=== PATIENT | female | born 1955 | race Caucasian/White ===

== ENCOUNTER 2016-09-24 01:44 | Emergency (ER) | payer MEDICARE, OTHER ==
[2016-09-24 02:13] VITALS: TEMP 98.1; BMI 66.3
--- NOTE | 2016-09-24 03:04 | PDOC ---
History of Present Illness - General Chief Complaint: Vaginal Bleeding Stated Complaint: RECTAL BLEEDING,SOB Time Seen by Provider: 09/24/16 02:04 History Source: Patient Past History - Past Medical History Allergies/Adverse Reactions: Allergies Allergy/AdvReac Type Severity Reaction Status Date / Time No Known Drug Allergies Allergy Verified 09/24/16 02:07 Home Medications: Ambulatory Orders Bupropion HCl [Wellbutrin Xl -] 150 mg PO DAILY #0 tab 05/11/13 Calamine 8% Topical Lotion - 1 applic TP DAILY #0 bottle 05/11/13 Carvedilol [Coreg -] 6.25 mg PO BID #0 tablet 05/11/13 Furosemide [Lasix -] 40 mg PO DAILY #0 tablet 05/11/13 Hydrochlorothiazide [Hctz -] 25 mg PO DAILY #0 tablet 05/11/13 Losartan Potassium [Cozaar -] 100 mg PO DAILY #0 tablet 05/11/13 Silver Sulfadiazine 1% Top Cr [Silvadene -] 1 applic TP ASDIR #0 jar 05/11/13 Spironolactone [Aldactone -] 25 mg PO DAILY #0 tablet 05/11/13 Oxycodone HCl [Roxicodone -] 5 mg PO Q4H PRN #30 tablet 07/16/14 Rivaroxaban [Xarelto -] 20 mg PO DAILY #60 tablet 07/16/14 Anemia: No Asthma: No Cancer: No Cardiac Disorders: Yes (chest pain, POSSIBLE PE) CVA: No COPD: No CHF: No Dementia: No Diabetes: No GI Disorders: No Disorders: No HTN: Yes Hypercholesterolemia: No Liver Disease: No Suicide Attempt (Hx): No Seizures: No Thyroid Disease: No - Surgical History Abdominal Surgery: No Appendectomy: No Cardiac Surgery: No Cholecystectomy: No Lung Surgery: No Neurologic Surgery: No Orthopedic Surgery: No - Psycho/Social/Smoking Cessation Hx Anxiety: No Suicidal Ideation: No Smoking Status: No Smoking History: Never smoked Have you smoked in the past 12 months: No Number of Cigarettes Smoked Daily: 0 Hx Alcohol Use: No Drug/Substance Use Hx: No Substance Use Type: None Hx Substance Use Treatment: No *Physical Exam - Vital Signs Last Vital Signs Temp Pulse Resp BP Pulse Ox 98.1 F 119 H 20 141/72 96 09/24/16 01:45 09/24/16 01:45 09/24/16 01:45 09/24/16 01:45 09/24/16 01:45 ED Treatment Course - LABORATORY CBC & Chemistry Diagram: 09/24/16 03:00 09/24/16 03:00 *DC/Admit/Observation/Transfer Diagnosis at time of Disposition: Postmenopausal bleeding - Discharge Dispostion Disposition: HOME Condition at time of disposition: Stable - Referrals Referrals: Harvey Howard MD [Primary Care Provider] - Sandra Rehman MD [Staff Physician] - - Patient Instructions Printed Discharge Instructions: Postmenopausal Bleeding Additional Instructions: Please follow-up with Dr. Rehman of lab head for biopsy of your uterus to rule out malignancy at this time. If you are still interested in being placed in a long-term care facility, follow -up with your PMD who can assist in arranging placement
[2016-09-24 03:24] LABS: BASOPHIL 0.3 % (0-2.0); EOSINOPHIL 0.2 % (0-4.5); MCH 29.8 pg (25.7-33.7); MCHC 33.3 g/dl (32.0-36.0); MEAN CELL VOLUME 89.5 fl (80-96); MEAN PLT VOLUME 6.6 fl (7.5-11.1); NEUTROPHILS 82.4 % (42.8-82.8); PLATELET COUNT 143 K/MM3 (134-434); RDW 15.8 % (11.6-15.6); WHITE BLOOD COUNT 6.9 K/mm3 (4.0-10.0)
[2016-09-24 03:47] LABS: TROPONIN I < 0.02 ng/ml (0.00-0.05)
[2016-09-24 03:50] LABS: ALBUMIN 3.7 g/dl (3.4-5.0); ANION GAP 13 (8-16); BILIRUBIN,TOTAL 0.4 mg/dL (0.2-1.0); CALCIUM 8.6 mg/dL (8.5-10.1); CO2 24 mmol/L (21-32); CREATININE 0.7 mg/dL (0.55-1.02); GLUCOSE,RANDOM 138 mg/dL (74-106); SGOT/AST 13 U/L (15-37); SGPT/ALT 25 U/L (12-78); TOT PROT 7.3 g/dl (6.4-8.2)
[2016-09-24 03:51] LABS: ALK PHOS 118 U/L (45-117)
[2016-09-24 04:04] LABS: URINE APPEARANCE CLEAR; URINE BILIRUBIN NEGATIVE (NEGATIVE); URINE COLOR YELLOW; URINE GLUCOSE (UA) NEGATIVE (NEGATIVE); URINE KETONE NEGATIVE (NEGATIVE); URINE LEUK ESTERASE NEGATIVE (NEGATIVE); URINE NITRITE NEGATIVE (NEGATIVE); URINE UROBILINOGEN NEGATIVE E.U./dl (0.2-1.0)
[2016-09-24 04:05] LABS: URINE BLOOD 1+ (NEGATIVE); URINE PROTEIN 1+ (NEGATIVE)
[2016-09-24 04:11] LABS: GRANULAR CASTS 12 /lpf; URINE BACTERIA RARE /hpf (NONE SEEN); URINE HYALINE CAST 5 /lpf; URINE MUCUS MANY; URINE RBC 6 /hpf (0-3); URINE WBC 2 /hpf (3-5)
--- NOTE | 2016-09-24 04:36 | PDOC ---
*Physical Exam - Vital Signs Last Vital Signs Temp Pulse Resp BP Pulse Ox 98.1 F 119 H 20 141/72 96 09/24/16 01:45 09/24/16 01:45 09/24/16 01:45 09/24/16 01:45 09/24/16 01:45 ED Treatment Course - LABORATORY CBC & Chemistry Diagram: 09/24/16 03:00 09/24/16 03:00 - ADDITIONAL ORDERS Additional order review: Laboratory Results 09/24/16 09/24/16 09/24/16 03:50 03:00 03:00 Sodium 139 Potassium 3.7 Chloride 102 Carbon Dioxide 24 D Anion Gap 13 BUN 13 D Creatinine 0.7 D Creat Clearance w eGFR > 60 Random Glucose 138 H D Calcium 8.6 Total Bilirubin 0.4 D AST 13 L ALT 25 Alkaline Phosphatase 118 H D Creatine Kinase 30 Troponin I < 0.02 Total Protein 7.3 Albumin 3.7 Urine Color Yellow Urine Appearance Clear Urine pH 5.0 Ur Specific [place] 1.024 Urine Protein 1+ H Urine Glucose (UA) Negative Urine Ketones Negative Urine Blood 1+ H Urine Nitrite Negative Urine Bilirubin Negative Urine Urobilinogen Negative Ur Leukocyte Esterase Negative Urine RBC 6 Urine WBC 2 Ur Epithelial Cells Rare Urine Bacteria Rare Hyaline Casts 5 Granular Casts 12 Urine Mucus Many 09/24/16 03:00 RBC 3.82 MCV 89.5 MCHC 33.3 RDW 15.8 H MPV 6.6 L Neutrophils % 82.4 D Lymphocytes % 12.8 D Monocytes % 4.3 Eosinophils % 0.2 D Basophils % 0.3 Medical Decision Making - Medical Decision Making 09/24/16 04:36 agree with care from [facility] *DC/Admit/Observation/Transfer Diagnosis at time of Disposition: Postmenopausal bleeding - Discharge Dispostion Disposition: HOME Condition at time of disposition: Stable Admit: No - Referrals Referrals: Harvey Howard MD [Primary Care Provider] - Sandra Rehman MD [Staff Physician] - - Patient Instructions Printed Discharge Instructions: Postmenopausal Bleeding Additional Instructions: Please follow-up with Dr. Rehman of semiconductor development technician for biopsy of your uterus to rule out malignancy at this time. If you are still interested in being placed in a long-term care facility, follow -up with your PMD who can assist in arranging placement
--- NOTE | 2016-09-24 09:43 | PDOC ---
*Physical Exam - Vital Signs Last Vital Signs Temp Pulse Resp BP Pulse Ox 98.1 F 119 H 20 141/72 96 09/24/16 01:45 09/24/16 01:45 09/24/16 01:45 09/24/16 01:45 09/24/16 01:45 ED Treatment Course - LABORATORY CBC & Chemistry Diagram: 09/24/16 03:00 09/24/16 03:00 - ADDITIONAL ORDERS Additional order review: Laboratory Results 09/24/16 09/24/16 09/24/16 03:50 03:00 03:00 Sodium 139 Potassium 3.7 Chloride 102 Carbon Dioxide 24 D Anion Gap 13 BUN 13 D Creatinine 0.7 D Creat Clearance w eGFR > 60 Random Glucose 138 H D Calcium 8.6 Total Bilirubin 0.4 D AST 13 L ALT 25 Alkaline Phosphatase 118 H D Creatine Kinase 30 Troponin I < 0.02 Total Protein 7.3 Albumin 3.7 Urine Color Yellow Urine Appearance Clear Urine pH 5.0 Ur Specific [place] 1.024 Urine Protein 1+ H Urine Glucose (UA) Negative Urine Ketones Negative Urine Blood 1+ H Urine Nitrite Negative Urine Bilirubin Negative Urine Urobilinogen Negative Ur Leukocyte Esterase Negative Urine RBC 6 Urine WBC 2 Ur Epithelial Cells Rare Urine Bacteria Rare Hyaline Casts 5 Granular Casts 12 Urine Mucus Many 09/24/16 03:00 RBC 3.82 MCV 89.5 MCHC 33.3 RDW 15.8 H MPV 6.6 L Neutrophils % 82.4 D Lymphocytes % 12.8 D Monocytes % 4.3 Eosinophils % 0.2 D Basophils % 0.3 Medical Decision Making - Medical Decision Making 09/24/16 09:40 As per radiology, was unable to do transvaginal ultrasound secondary to patient' s weight However transabdominal ultrasound was performed and shows mildly thickened endometrium, otherwise no acute pathology. Given postmenopausal bleeding, patient aware that she will need to follow-up with [facility] to rule out endometrial malignancy. Patient feels safe to go home and states she will follow up with [facility] 09/24/16 09:43 *DC/Admit/Observation/Transfer Diagnosis at time of Disposition: Postmenopausal bleeding - Discharge Dispostion Disposition: HOME Condition at time of disposition: Stable - Referrals Referrals: Harvey Howard MD [Primary Care Provider] - Sandra Rehman MD [Staff Physician] - - Patient Instructions Printed Discharge Instructions: Postmenopausal Bleeding Additional Instructions: Please follow-up with Dr. Rehman of ceramic [employer] designer for biopsy of your uterus to rule out malignancy at this time. If you are still interested in being placed in a long-term care facility, follow -up with your PMD who can assist in arranging placement
[2016-09-24 10:31] VITALS: BP 154/89; PULSE 100
--- NOTE | 2016-09-24 10:54 | EKG ---
Test Reason : Blood Pressure : / mmHG Vent. Rate : 101 BPM Atrial Rate : 101 BPM P-R Int : 166 ms QRS Dur : 082 ms QT Int : 374 ms P-R-T Axes : 047 -22 065 degrees QTc Int : 484 ms SINUS TACHYCARDIA POOR R WAVE PROGRESSION NONSPECIFIC ST ABNORMALITY WHEN COMPARED WITH ECG OF 13-JUL-2014 17:53, NO SIGNIFICANT CHANGE WAS FOUND Confirmed by LANETTE STEELE MD ([id number]) on 09/24/2016 10:54:16 AM Referred By: Confirmed By:LANETTE STEELE MD
== END 2016-09-24 12:24 | disposition home or self-care (01) ==
LOC: JER 01:44
DX: N95.0 Postmenopausal bleeding (principal)
CPT/HCPCS: 36415; 76856-TC; 80053; 81003; 81015; 82550; 84484; 85025; 93005; 93010; 99283-25

== ENCOUNTER 2022-09-27 13:02 | Inpatient (IN) | payer MEDICARE, OTHER ==
[2022-09-27] MEDS ORDERED: SODIUM CHLORIDE IV ONE (13:50)
[2022-09-27] MEDS ORDERED: ACETAMINOPHEN 1000 MG/100 ML BAG IVPB ONE (13:55)
[2022-09-27] MEDS ORDERED: ONDANSETRON 4 MG/2 ML VIAL IVPUSH ONE (14:07)
[2022-09-27] MEDS ORDERED: ACETAMINOPHEN INJECTION 100 ML IVPB ONE (14:08)
[2022-09-27] MEDS ORDERED: ONDANSETRON 4 MG/2 ML VIAL ONE (14:08)
[2022-09-27 14:53] LABS: BASO % 0.2 % (0-2.0); EOS % 0.1 % (0-4.5); HEMATOCRIT 36.8 % (32.4-45.2); HEMOGLOBIN 11.7 GM/dL (10.7-15.3); LYMPH % 3.9 % (8-40); MCH 26.6 pg (25.7-33.7); MCHC 31.8 g/dl (32.0-36.0); MEAN CELL VOLUME 83.9 fl (80-96); MEAN PLT VOLUME 5.9 fl (7.5-11.1); MONO % 5.5 % (3.8-10.2); NEUT % 90.3 % (42.8-82.8); PLATELET COUNT 177 10^3/uL (134-434); RBC 4.39 M/mm3 (3.60-5.2); RDW 16.2 % (11.6-15.6); WHITE BLOOD COUNT 10.4 K/mm3 (4.0-10.0)
[2022-09-27 14:54] LABS: VENOUS BASE EXCESS 0.2 mmol/L (-2-2); VENOUS O2 SATURATION 41.6 % (70-80); VENOUS PCO2 53.7 mmHg (38-52); VENOUS PH 7.322 (7.310-7.410)
[2022-09-27 15:01] LABS: INR 1.13 (0.83-1.09); PROTHROMBIN TIME (PATIENT) 13.1 SEC (9.7-13.0)
[2022-09-27 15:03] LABS: ACTIVATED PTT 28.2 SECONDS (25.2-36.5)
[2022-09-27 15:14] LABS: ALBUMIN 3.6 g/dl (3.4-5.0); BLOOD UREA NITROGEN 9.2 mg/dL (7-18); CALCIUM 8.6 mg/dL (8.5-10.1)
[2022-09-27 15:18] LABS: CREATININE 0.6 mg/dL (0.55-1.3)
[2022-09-27 15:20] LABS: BILIRUBIN,TOTAL 0.6 mg/dL (0.2-1); TOT PROT 7.2 g/dl (6.4-8.2)
[2022-09-27] MEDS ORDERED: AZITHROMYCIN IVPB 500 MG in DEXTROSE 5%-WATER - 250 ML IVPB ONE (15:37)
[2022-09-27] MEDS ORDERED: CEFTRIAXONE 1,000 MG in DEXTROSE 5%-WATER - 50 ML IVPB ONE (15:37)
[2022-09-27 15:49] LABS: LACTIC ACID 3.6 mmol/L (0.4-2.0)
[2022-09-27] MEDS ORDERED: SODIUM CHLORIDE 500 ML IV STA (15:55)
[2022-09-27 16:14] LABS: EPI CELLS 15 /uL (0-25.1); HYALINE CASTS 1 /uL (0-3.1); PH,URINE 6.5 (5.0-8.0); URINE APPEARANCE CLEAR; URINE BACTERIA 6 /uL (0-1359); URINE BILIRUBIN NEGATIVE (NEGATIVE); URINE COLOR YELLOW; URINE GLUCOSE (UA) NEGATIVE (NEGATIVE); URINE KETONE NEGATIVE (NEGATIVE); URINE LEUK ESTERASE NEGATIVE (NEGATIVE); URINE NITRITE NEGATIVE (NEGATIVE); URINE PROTEIN 1+ (NEGATIVE); URINE RBC 15 /uL (0-23.9); URINE UROBILINOGEN 0.2 mg/dL (0.2-1.0); URINE WBC 12 /uL (0-25.8)
[2022-09-27] MEDS ORDERED: CEFTRIAXONE 1 GM/50 ML BAG ONE (16:14)
[2022-09-27] MEDS ORDERED: AZITHROMYCIN IVPB 500 MG/250 ML BAG IVPB ONE (16:57)
[2022-09-27] MEDS ORDERED: DEXTROSE 5%-LACTATED RINGERS 1,000 ML IV SCH (17:00)
[2022-09-27] MEDS ORDERED: ENOXAPARIN NA (PORCINE) 40 MG/0.4 ML DISP.SYRIN SQ SCH (17:15)
[2022-09-27] MEDS ORDERED: AMMONIUM LACTATE 12% LOTION 225 GM BOTTLE TP PRN (18:20)
[2022-09-27] MEDS ORDERED: ENOXAPARIN NA (PORCINE) 40 MG/0.4 ML DISP.SYRIN SQ ONE (18:41)
[2022-09-27] MEDS ORDERED: PANTOPRAZOLE 40 MG TABLET PO ONE (18:41)
[2022-09-27] MEDS ORDERED: ASPIRIN 81 MG CHEWABLE TABLETS ONE (18:41)
[2022-09-27] MEDS: DEXTROSE 5%-LACTATED RINGERS 1,000 ML IV SCH ×2 (18:59→23:36)
[2022-09-27] MEDS: PANTOPRAZOLE 40 MG TABLET PO SCH (19:00)
[2022-09-27] MEDS: ENOXAPARIN NA (PORCINE) 40 MG/0.4 ML DISP.SYRIN SQ SCH (19:00)
[2022-09-27] MEDS: INSULIN SLIDING SCALE (NOVOLOG) 1 VIAL SQ SCH (19:00)
[2022-09-27] MEDS: ASPIRIN COATED 81 MG TABLET.EC PO SCH (19:00)
[2022-09-27 19:57] LABS: LACTIC ACID 2.3 mmol/L (0.4-2.0)
[2022-09-27] MEDS: MONTELUKAST NA 10 MG TABLET PO SCH (22:45)
[2022-09-28 00:45] VITALS: BMI 73.1
[2022-09-28] MEDS: ACETAMINOPHEN 1000 MG/100 ML BAG IVPB PRN ×2 (05:07→20:35)
[2022-09-28] MEDS: INSULIN SLIDING SCALE (NOVOLOG) 1 VIAL SQ SCH ×3 (07:24→16:27)
[2022-09-28] MEDS: LEVOTHYROXINE NA 125 MCG TABLET (FP) PO SCH (07:38)
[2022-09-28 08:33] LABS: HEMATOCRIT 31.6 % (32.4-45.2); MCH 26.6 pg (25.7-33.7); MCHC 31.7 g/dl (32.0-36.0); MEAN PLT VOLUME 6.1 fl (7.5-11.1); PLATELET COUNT 143 10^3/uL (134-434); RBC 3.77 M/mm3 (3.60-5.2); RDW 16.4 % (11.6-15.6); WHITE BLOOD COUNT 11.3 K/mm3 (4.0-10.0)
[2022-09-28 08:49] LABS: BLOOD UREA NITROGEN 12.2 mg/dL (7-18)
[2022-09-28 08:52] LABS: CREATININE 0.7 mg/dL (0.55-1.3)
[2022-09-28 09:01] LABS: LACTIC ACID 2.8 mmol/L (0.4-2.0)
[2022-09-28 09:10] LABS: ERYTHROCYTE SEDIMENTATION RATE 81 mm/hr (0-30)
[2022-09-28] MEDS ORDERED: VANCOMYCIN 1 GRAM (PRE-DOCKED) 1,000 MG/250 ML BAG IVPB SCH (09:30)
[2022-09-28] MEDS ORDERED: DEXTROSE 5%-LACTATED RINGERS 1,000 ML IV SCH (09:41)
[2022-09-28] MEDS ORDERED: CARVEDILOL 6.25 MG TABLET (FP) PO SCH (10:00)
[2022-09-28] MEDS ORDERED: CHOLECALCIFEROL (VIT D3) 1,000 UNIT (25 MCG) TABLET PO SCH (10:00)
[2022-09-28] MEDS: ENOXAPARIN NA (PORCINE) 40 MG/0.4 ML DISP.SYRIN SQ SCH (10:10)
[2022-09-28] MEDS: PANTOPRAZOLE 40 MG TABLET PO SCH (10:10)
[2022-09-28] MEDS: oxyCODONE HCL 5 MG TABLET PO PRN (10:26)
[2022-09-28] MEDS: ASPIRIN COATED 81 MG TABLET.EC PO SCH (10:28)
[2022-09-28] MEDS ORDERED: VANCOMYCIN/WATER 2 GM/400 ML PREMIX BAG IVPB ONE (11:19)
[2022-09-28] MEDS ORDERED: VANCOMYCIN/WATER 2 GRAMS 2,000 MG/400 ML PIGGYBACK IVPB ONE (12:00)
[2022-09-28] MEDS ORDERED: IRON SUCROSE INJECTION 300 MG in SODIUM CHLORIDE 235 ML IVPB ONE (12:00)
[2022-09-28] MEDS: CEFTRIAXONE 2 GM in DEXTROSE 5%-WATER 100 ML IVPB SCH (12:34)
[2022-09-28] MEDS: LACTATED RINGERS SOLUTION 1,000 ML/1,000 ML INFUS.BAG IV SCH (16:49)
[2022-09-28] MEDS ORDERED: RIVAROXABAN 20 MG TABLET PO SCH (18:00)
[2022-09-28] MEDS: MONTELUKAST NA 10 MG TABLET PO SCH (21:54)
[2022-09-28] MEDS ORDERED: VANCOMYCIN/WATER 2 GM/400 ML PREMIX BAG IVPB SCH (23:45)
[2022-09-29] MEDS ORDERED: VANCOMYCIN/WATER 2 GRAMS 2,000 MG/400 ML PIGGYBACK IVPB SCH
[2022-09-29] MEDS: LACTATED RINGERS SOLUTION 1,000 ML/1,000 ML INFUS.BAG IV SCH ×2 (05:18→23:12)
[2022-09-29] MEDS: VANCOMYCIN/WATER 2 GRAMS 2,000 MG/400 ML PIGGYBACK IVPB SCH ×2 (05:19→17:38)
[2022-09-29] MEDS: INSULIN SLIDING SCALE (NOVOLOG) 1 VIAL SQ SCH ×3 (06:10→17:28)
[2022-09-29] MEDS: LEVOTHYROXINE NA 125 MCG TABLET (FP) PO SCH (06:35)
[2022-09-29 07:53] LABS: BASO % 0.2 % (0-2.0); EOS % 0.3 % (0-4.5); HEMATOCRIT 30.6 % (32.4-45.2); HEMOGLOBIN 9.8 GM/dL (10.7-15.3); LYMPH % 7.1 % (8-40); MCH 27.4 pg (25.7-33.7); MCHC 31.9 g/dl (32.0-36.0); MEAN CELL VOLUME 85.7 fl (80-96); MEAN PLT VOLUME 6.3 fl (7.5-11.1); MONO % 6.2 % (3.8-10.2); NEUT % 86.2 % (42.8-82.8); PLATELET COUNT 140 10^3/uL (134-434); RBC 3.58 M/mm3 (3.60-5.2); RDW 16.7 % (11.6-15.6); WHITE BLOOD COUNT 10.1 K/mm3 (4.0-10.0)
[2022-09-29 08:20] LABS: CALCIUM 8.4 mg/dL (8.5-10.1)
[2022-09-29 08:21] LABS: BLOOD UREA NITROGEN 14.2 mg/dL (7-18)
[2022-09-29 08:25] LABS: CREATININE 0.5 mg/dL (0.55-1.3)
[2022-09-29] MEDS: CEFTRIAXONE 2 GM in DEXTROSE 5%-WATER 100 ML IVPB SCH (09:42)
[2022-09-29] MEDS: ENOXAPARIN NA (PORCINE) 40 MG/0.4 ML DISP.SYRIN SQ SCH (09:43)
[2022-09-29] MEDS: ASPIRIN COATED 81 MG TABLET.EC PO SCH (09:44)
[2022-09-29] MEDS: PANTOPRAZOLE 40 MG TABLET PO SCH (09:44)
[2022-09-29] MEDS: CHOLECALCIFEROL (VIT D3) 5000 UNITS (125 MCG) CAP PO SCH (09:45)
[2022-09-29 09:48] LABS: ERYTHROCYTE SEDIMENTATION RATE 92 mm/hr (0-30)
[2022-09-29] MEDS: oxyCODONE HCL 5 MG TABLET PO PRN (10:10)
[2022-09-29] MEDS ORDERED: LACTATED RINGERS SOLUTION 1,000 ML/1,000 ML INFUS.BAG IV SCH (16:21)
[2022-09-29] MEDS: ACETAMINOPHEN 325 MG TABLET (FP) PO PRN (17:52)
[2022-09-29] MEDS: MONTELUKAST NA 10 MG TABLET PO SCH (22:18)
[2022-09-30] MEDS: VANCOMYCIN/WATER 2 GRAMS 2,000 MG/400 ML PIGGYBACK IVPB SCH (05:45)
[2022-09-30] MEDS: LEVOTHYROXINE NA 125 MCG TABLET (FP) PO SCH (06:43)
[2022-09-30] MEDS: ACETAMINOPHEN 325 MG TABLET (FP) PO PRN (06:44)
[2022-09-30] MEDS: INSULIN SLIDING SCALE (NOVOLOG) 1 VIAL SQ SCH ×3 (06:59→16:39)
[2022-09-30 07:35] LABS: CALCIUM 8.3 mg/dL (8.5-10.1)
[2022-09-30 07:38] LABS: BLOOD UREA NITROGEN 9.5 mg/dL (7-18)
[2022-09-30 07:39] LABS: CREATININE 0.4 mg/dL (0.55-1.3)
[2022-09-30 07:48] LABS: BASO % 0.2 % (0-2.0); EOS % 0.7 % (0-4.5); HEMATOCRIT 28.2 % (32.4-45.2); HEMOGLOBIN 9.2 GM/dL (10.7-15.3); LYMPH % 11.9 % (8-40); MCHC 32.6 g/dl (32.0-36.0); MEAN CELL VOLUME 85.9 fl (80-96); MEAN PLT VOLUME 6.1 fl (7.5-11.1); MONO % 7.8 % (3.8-10.2); NEUT % 79.4 % (42.8-82.8); PLATELET COUNT 144 10^3/uL (134-434); RBC 3.29 M/mm3 (3.60-5.2); RDW 16.3 % (11.6-15.6); WHITE BLOOD COUNT 7.4 K/mm3 (4.0-10.0)
[2022-09-30] MEDS ORDERED: IRON SUCROSE INJECTION 300 MG in SODIUM CHLORIDE 235 ML IVPB ONE (08:30)
[2022-09-30] MEDS: CHOLECALCIFEROL (VIT D3) 5000 UNITS (125 MCG) CAP PO SCH (09:52)
[2022-09-30] MEDS: PANTOPRAZOLE 40 MG TABLET PO SCH (09:52)
[2022-09-30] MEDS: ENOXAPARIN NA (PORCINE) 40 MG/0.4 ML DISP.SYRIN SQ SCH (09:52)
[2022-09-30] MEDS: ASPIRIN COATED 81 MG TABLET.EC PO SCH (09:52)
[2022-09-30 09:55] LABS: ERYTHROCYTE SEDIMENTATION RATE 94 mm/hr (0-30)
[2022-09-30] MEDS ORDERED: LACTATED RINGERS SOLUTION 1,000 ML/1,000 ML INFUS.BAG IV SCH (13:45)
[2022-09-30] MEDS: HEPARIN NA (PORCINE) 5,000 UNITS/ML 1ML VIAL SQ SCH ×2 (13:48→21:21)
[2022-09-30] MEDS: oxyCODONE HCL 5 MG TABLET PO PRN (14:00)
[2022-09-30] MEDS: CEFTRIAXONE 2 GM in DEXTROSE 5%-WATER 100 ML IVPB SCH (14:36)
[2022-09-30] MEDS: CEFAZOLIN SODIUM 2 GM in DEXTROSE 5%-WATER 100 ML IVPB SCH ×2 (16:47→21:24)
[2022-09-30] MEDS: MONTELUKAST NA 10 MG TABLET PO SCH (21:21)
[2022-10-01] MEDS: CEFAZOLIN SODIUM 2 GM in DEXTROSE 5%-WATER 100 ML IVPB SCH ×4 (04:30→22:12)
[2022-10-01] MEDS: HEPARIN NA (PORCINE) 5,000 UNITS/ML 1ML VIAL SQ SCH ×3 (06:04→22:10)
[2022-10-01] MEDS: INSULIN SLIDING SCALE (NOVOLOG) 1 VIAL SQ SCH ×2 (06:05→17:00)
[2022-10-01] MEDS: LEVOTHYROXINE NA 125 MCG TABLET (FP) PO SCH (07:50)
[2022-10-01] MEDS: LACTATED RINGERS SOLUTION 1,000 ML/1,000 ML INFUS.BAG IV SCH (07:50)
[2022-10-01 08:43] LABS: HEMATOCRIT 26.6 % (32.4-45.2); HEMOGLOBIN 8.7 GM/dL (10.7-15.3); MCH 27.2 pg (25.7-33.7); MCHC 32.7 g/dl (32.0-36.0); MEAN CELL VOLUME 83.4 fl (80-96); MEAN PLT VOLUME 6.3 fl (7.5-11.1); PLATELET COUNT 142 10^3/uL (134-434); RBC 3.19 M/mm3 (3.60-5.2); WHITE BLOOD COUNT 5.4 K/mm3 (4.0-10.0)
[2022-10-01 08:53] LABS: BLOOD UREA NITROGEN 7.5 mg/dL (7-18); CALCIUM 8.4 mg/dL (8.5-10.1)
[2022-10-01 08:56] LABS: CREATININE 0.4 mg/dL (0.55-1.3)
[2022-10-01 09:16] LABS: ANISOCYTOSIS 0; HELMET CELLS 0; HOWELL-JOLLY BODIES 0; MACROCYTOSIS 0; OVALOCYTE 0; ROULEAU 0; SICKELED CELLS 0; TARGET CELLS 0; TEAR DROP CELLS 0; TOXIC GRANULATION 0
[2022-10-01 09:24] LABS: ERYTHROCYTE SEDIMENTATION RATE 89 mm/hr (0-30)
[2022-10-01] MEDS: CHOLECALCIFEROL (VIT D3) 5000 UNITS (125 MCG) CAP PO SCH (10:16)
[2022-10-01] MEDS: PANTOPRAZOLE 40 MG TABLET PO SCH (10:16)
[2022-10-01] MEDS: ASPIRIN COATED 81 MG TABLET.EC PO SCH (10:16)
[2022-10-01] MEDS: oxyCODONE HCL 5 MG TABLET PO PRN (13:54)
[2022-10-01] MEDS: valACYclovir HCL 500 MG TABLET (FP) PO SCH ×2 (14:47→22:11)
[2022-10-01] MEDS: MONTELUKAST NA 10 MG TABLET PO SCH (22:10)
[2022-10-02] MEDS: CEFAZOLIN SODIUM 2 GM in DEXTROSE 5%-WATER 100 ML IVPB SCH ×4 (04:38→21:40)
[2022-10-02] MEDS: LEVOTHYROXINE NA 125 MCG TABLET (FP) PO SCH (06:38)
[2022-10-02] MEDS: HEPARIN NA (PORCINE) 5,000 UNITS/ML 1ML VIAL SQ SCH ×3 (06:38→21:40)
[2022-10-02] MEDS: LACTATED RINGERS SOLUTION 1,000 ML/1,000 ML INFUS.BAG IV SCH ×2 (06:43→12:23)
[2022-10-02] MEDS: INSULIN SLIDING SCALE (NOVOLOG) 1 VIAL SQ SCH ×2 (06:44→16:21)
[2022-10-02 08:18] LABS: BASO % 0.6 % (0-2.0); EOS % 1.6 % (0-4.5); HEMATOCRIT 26.6 % (32.4-45.2); HEMOGLOBIN 8.8 GM/dL (10.7-15.3); LYMPH % 14.2 % (8-40); MCH 27.9 pg (25.7-33.7); MCHC 33.1 g/dl (32.0-36.0); MEAN CELL VOLUME 84.5 fl (80-96); MEAN PLT VOLUME 6.1 fl (7.5-11.1); MONO % 10.6 % (3.8-10.2); PLATELET COUNT 175 10^3/uL (134-434); RBC 3.15 M/mm3 (3.60-5.2); RDW 16.2 % (11.6-15.6); WHITE BLOOD COUNT 6.9 K/mm3 (4.0-10.0)
[2022-10-02 08:37] LABS: CALCIUM 8.3 mg/dL (8.5-10.1)
[2022-10-02 08:38] LABS: BLOOD UREA NITROGEN 4.3 mg/dL (7-18)
[2022-10-02 08:41] LABS: CREATININE 0.4 mg/dL (0.55-1.3)
[2022-10-02] MEDS: ACETAMINOPHEN 325 MG TABLET (FP) PO PRN (08:59)
[2022-10-02 09:10] LABS: ERYTHROCYTE SEDIMENTATION RATE 82 mm/hr (0-30)
[2022-10-02] MEDS: oxyCODONE HCL 5 MG TABLET PO PRN ×2 (09:44→21:48)
[2022-10-02] MEDS: valACYclovir HCL 500 MG TABLET (FP) PO SCH ×2 (09:45→21:40)
[2022-10-02] MEDS: PANTOPRAZOLE 40 MG TABLET PO SCH (09:45)
[2022-10-02] MEDS: ASPIRIN COATED 81 MG TABLET.EC PO SCH (09:45)
[2022-10-02] MEDS: CHOLECALCIFEROL (VIT D3) 5000 UNITS (125 MCG) CAP PO SCH (09:46)
[2022-10-02] MEDS: MONTELUKAST NA 10 MG TABLET PO SCH (21:40)
[2022-10-03] MEDS: CEFAZOLIN SODIUM 2 GM in DEXTROSE 5%-WATER 100 ML IVPB SCH ×4 (04:15→22:45)
[2022-10-03] MEDS: HEPARIN NA (PORCINE) 5,000 UNITS/ML 1ML VIAL SQ SCH ×3 (05:46→22:45)
[2022-10-03] MEDS: LEVOTHYROXINE NA 125 MCG TABLET (FP) PO SCH (06:00)
[2022-10-03] MEDS: INSULIN SLIDING SCALE (NOVOLOG) 1 VIAL SQ SCH ×2 (06:00→16:09)
[2022-10-03] MEDS: LACTATED RINGERS SOLUTION 1,000 ML/1,000 ML INFUS.BAG IV SCH (06:00)
[2022-10-03 08:46] LABS: BASO % 0.4 % (0-2.0); EOS % 2.7 % (0-4.5); HEMATOCRIT 26.7 % (32.4-45.2); HEMOGLOBIN 8.7 GM/dL (10.7-15.3); LYMPH % 16.7 % (8-40); MCH 27.2 pg (25.7-33.7); MCHC 32.6 g/dl (32.0-36.0); MEAN CELL VOLUME 83.5 fl (80-96); MONO % 12.1 % (3.8-10.2); NEUT % 68.1 % (42.8-82.8); PLATELET COUNT 181 10^3/uL (134-434); RDW 16.3 % (11.6-15.6); WHITE BLOOD COUNT 5.7 K/mm3 (4.0-10.0)
[2022-10-03 08:47] LABS: MEAN PLT VOLUME 5.8 fl (7.5-11.1)
[2022-10-03 08:59] LABS: BLOOD UREA NITROGEN 4.8 mg/dL (7-18); CALCIUM 8.5 mg/dL (8.5-10.1)
[2022-10-03 09:03] LABS: CREATININE 0.4 mg/dL (0.55-1.3)
[2022-10-03 09:04] LABS: BILIRUBIN,TOTAL 0.5 mg/dL (0.2-1); TOT PROT 5.8 g/dl (6.4-8.2)
[2022-10-03 09:07] LABS: ALBUMIN 2.6 g/dl (3.4-5.0)
[2022-10-03 09:58] LABS: ANISOCYTOSIS 0; HELMET CELLS 0; HOWELL-JOLLY BODIES 0; MACROCYTOSIS 0; OVALOCYTE 0; ROULEAU 0; SICKELED CELLS 0; TARGET CELLS 0; TEAR DROP CELLS 0; TOXIC GRANULATION 0
[2022-10-03] MEDS: ASPIRIN COATED 81 MG TABLET.EC PO SCH (10:24)
[2022-10-03] MEDS: CHOLECALCIFEROL (VIT D3) 5000 UNITS (125 MCG) CAP PO SCH (10:24)
[2022-10-03] MEDS: valACYclovir HCL 500 MG TABLET (FP) PO SCH ×2 (10:24→22:45)
[2022-10-03] MEDS: PANTOPRAZOLE 40 MG TABLET PO SCH (10:24)
[2022-10-03] MEDS: oxyCODONE HCL 5 MG TABLET PO PRN ×2 (10:32→22:47)
[2022-10-03] MEDS: ALBUTEROL SO4 2.5/IPRATROPIUM 0.5 INH SOL 3 ML VIAL.NEB. NEB SCH ×2 (15:58→21:09)
[2022-10-03] MEDS: MONTELUKAST NA 10 MG TABLET PO SCH (22:45)
[2022-10-04] MEDS: CEFAZOLIN SODIUM 2 GM in DEXTROSE 5%-WATER 100 ML IVPB SCH ×4 (04:34→21:20)
[2022-10-04] MEDS: LEVOTHYROXINE NA 125 MCG TABLET (FP) PO SCH (06:05)
[2022-10-04] MEDS: HEPARIN NA (PORCINE) 5,000 UNITS/ML 1ML VIAL SQ SCH ×3 (06:05→21:23)
[2022-10-04] MEDS: LACTATED RINGERS SOLUTION 1,000 ML/1,000 ML INFUS.BAG IV SCH (06:06)
[2022-10-04] MEDS: INSULIN SLIDING SCALE (NOVOLOG) 1 VIAL SQ SCH ×2 (06:08→17:37)
[2022-10-04] MEDS: ALBUTEROL SO4 2.5/IPRATROPIUM 0.5 INH SOL 3 ML VIAL.NEB. NEB SCH ×5 (08:10→20:27)
[2022-10-04] MEDS: ASPIRIN COATED 81 MG TABLET.EC PO SCH (10:20)
[2022-10-04] MEDS: valACYclovir HCL 500 MG TABLET (FP) PO SCH ×2 (10:20→21:21)
[2022-10-04] MEDS: CHOLECALCIFEROL (VIT D3) 5000 UNITS (125 MCG) CAP PO SCH (10:20)
[2022-10-04] MEDS: PANTOPRAZOLE 40 MG TABLET PO SCH (10:20)
[2022-10-04] MEDS: oxyCODONE HCL 5 MG TABLET PO PRN (17:35)
[2022-10-04] MEDS: MONTELUKAST NA 10 MG TABLET PO SCH (21:21)
[2022-10-05] MEDS: CEFAZOLIN SODIUM 2 GM in DEXTROSE 5%-WATER 100 ML IVPB SCH ×4 (03:44→21:16)
[2022-10-05] MEDS: oxyCODONE HCL 5 MG TABLET PO PRN ×4 (05:40→21:35)
[2022-10-05] MEDS: HEPARIN NA (PORCINE) 5,000 UNITS/ML 1ML VIAL SQ SCH ×3 (05:41→21:16)
[2022-10-05] MEDS: LACTATED RINGERS SOLUTION 1,000 ML/1,000 ML INFUS.BAG IV SCH (06:35)
[2022-10-05] MEDS: LEVOTHYROXINE NA 125 MCG TABLET (FP) PO SCH (06:36)
[2022-10-05] MEDS: INSULIN SLIDING SCALE (NOVOLOG) 1 VIAL SQ SCH ×2 (07:00→17:28)
[2022-10-05] MEDS: ALBUTEROL SO4 2.5/IPRATROPIUM 0.5 INH SOL 3 ML VIAL.NEB. NEB SCH ×4 (07:35→20:24)
[2022-10-05 08:48] LABS: BASO % 0.7 % (0-2.0); EOS % 3.1 % (0-4.5); HEMATOCRIT 27.8 % (32.4-45.2); HEMOGLOBIN 9.2 GM/dL (10.7-15.3); LYMPH % 19.3 % (8-40); MCH 28.3 pg (25.7-33.7); MEAN CELL VOLUME 85.8 fl (80-96); MONO % 10.2 % (3.8-10.2); NEUT % 66.7 % (42.8-82.8); PLATELET COUNT 214 10^3/uL (134-434); RBC 3.24 M/mm3 (3.60-5.2); RDW 16.4 % (11.6-15.6); WHITE BLOOD COUNT 4.1 K/mm3 (4.0-10.0)
[2022-10-05 08:59] LABS: MEAN PLT VOLUME 5.8 fl (7.5-11.1)
[2022-10-05 09:33] LABS: ALBUMIN 2.6 g/dl (3.4-5.0); BLOOD UREA NITROGEN 4.3 mg/dL (7-18); CALCIUM 8.3 mg/dL (8.5-10.1); MAGNESIUM 1.7 mg/dL (1.8-2.4)
[2022-10-05 09:36] LABS: CREATININE 0.3 mg/dL (0.55-1.3); PHOSPHOROUS 3.6 mg/dL (2.5-4.9)
[2022-10-05 09:37] LABS: BILIRUBIN,TOTAL 0.4 mg/dL (0.2-1); TOT PROT 5.8 g/dl (6.4-8.2)
[2022-10-05] MEDS: ASPIRIN COATED 81 MG TABLET.EC PO SCH (09:45)
[2022-10-05] MEDS: PANTOPRAZOLE 40 MG TABLET PO SCH (09:45)
[2022-10-05] MEDS: valACYclovir HCL 500 MG TABLET (FP) PO SCH ×2 (09:45→21:16)
[2022-10-05] MEDS: CHOLECALCIFEROL (VIT D3) 5000 UNITS (125 MCG) CAP PO SCH (09:46)
[2022-10-05] MEDS ORDERED: MAGNESIUM SULF 50% (8.12 MEQ/2 ML-1 GM VIAL) IVPB ONE (11:05)
[2022-10-05] MEDS: MONTELUKAST NA 10 MG TABLET PO SCH (21:16)
[2022-10-06] MEDS: CEFAZOLIN SODIUM 2 GM in DEXTROSE 5%-WATER 100 ML IVPB SCH ×4 (05:00→22:48)
[2022-10-06] MEDS: oxyCODONE HCL 5 MG TABLET PO PRN ×4 (06:15→22:48)
[2022-10-06] MEDS: HEPARIN NA (PORCINE) 5,000 UNITS/ML 1ML VIAL SQ SCH ×3 (06:16→22:48)
[2022-10-06] MEDS: LACTATED RINGERS SOLUTION 1,000 ML/1,000 ML INFUS.BAG IV SCH (06:16)
[2022-10-06] MEDS: INSULIN SLIDING SCALE (NOVOLOG) 1 VIAL SQ SCH ×2 (06:16→17:53)
[2022-10-06] MEDS: LEVOTHYROXINE NA 125 MCG TABLET (FP) PO SCH (06:17)
[2022-10-06] MEDS: ALBUTEROL SO4 2.5/IPRATROPIUM 0.5 INH SOL 3 ML VIAL.NEB. NEB SCH ×4 (07:25→20:05)
[2022-10-06 08:17] LABS: BASO % 0.4 % (0-2.0); EOS % 2.6 % (0-4.5); HEMATOCRIT 28.5 % (32.4-45.2); HEMOGLOBIN 9.3 GM/dL (10.7-15.3); LYMPH % 16.8 % (8-40); MCH 27.4 pg (25.7-33.7); MCHC 32.6 g/dl (32.0-36.0); MONO % 8.9 % (3.8-10.2); NEUT % 71.3 % (42.8-82.8); PLATELET COUNT 200 10^3/uL (134-434); RBC 3.39 M/mm3 (3.60-5.2); RDW 16.7 % (11.6-15.6); WHITE BLOOD COUNT 4.5 K/mm3 (4.0-10.0)
[2022-10-06 08:36] LABS: MEAN PLT VOLUME 5.4 fl (7.5-11.1)
[2022-10-06 09:08] LABS: ALBUMIN 2.7 g/dl (3.4-5.0); CALCIUM 8.4 mg/dL (8.5-10.1)
[2022-10-06 09:09] LABS: BLOOD UREA NITROGEN 5.9 mg/dL (7-18); MAGNESIUM 1.7 mg/dL (1.8-2.4)
[2022-10-06 09:11] LABS: CREATININE 0.4 mg/dL (0.55-1.3)
[2022-10-06 09:12] LABS: PHOSPHOROUS 3.2 mg/dL (2.5-4.9)
[2022-10-06 09:13] LABS: BILIRUBIN,TOTAL 0.6 mg/dL (0.2-1); TOT PROT 5.8 g/dl (6.4-8.2)
[2022-10-06] MEDS: ASPIRIN COATED 81 MG TABLET.EC PO SCH (09:51)
[2022-10-06] MEDS: PANTOPRAZOLE 40 MG TABLET PO SCH (09:52)
[2022-10-06] MEDS: valACYclovir HCL 500 MG TABLET (FP) PO SCH ×2 (09:52→22:47)
[2022-10-06] MEDS: CHOLECALCIFEROL (VIT D3) 5000 UNITS (125 MCG) CAP PO SCH (11:07)
[2022-10-06 14:49] VITALS: RESP 18
[2022-10-06] MEDS: MONTELUKAST NA 10 MG TABLET PO SCH (22:47)
[2022-10-07] MEDS: CEFAZOLIN SODIUM 2 GM in DEXTROSE 5%-WATER 100 ML IVPB SCH ×4 (03:45→22:06)
[2022-10-07] MEDS: INSULIN SLIDING SCALE (NOVOLOG) 1 VIAL SQ SCH ×2 (06:08→16:42)
[2022-10-07] MEDS: HEPARIN NA (PORCINE) 5,000 UNITS/ML 1ML VIAL SQ SCH (06:08)
[2022-10-07] MEDS: LEVOTHYROXINE NA 125 MCG TABLET (FP) PO SCH (06:08)
[2022-10-07] MEDS: oxyCODONE HCL 5 MG TABLET PO PRN ×4 (06:47→22:06)
[2022-10-07] MEDS: ALBUTEROL SO4 2.5/IPRATROPIUM 0.5 INH SOL 3 ML VIAL.NEB. NEB SCH ×4 (08:33→20:00)
[2022-10-07] MEDS: PANTOPRAZOLE 40 MG TABLET PO SCH (11:01)
[2022-10-07] MEDS: valACYclovir HCL 500 MG TABLET (FP) PO SCH ×2 (11:01→22:06)
[2022-10-07] MEDS: CHOLECALCIFEROL (VIT D3) 5000 UNITS (125 MCG) CAP PO SCH (11:02)
[2022-10-07] MEDS: ASPIRIN COATED 81 MG TABLET.EC PO SCH (11:02)
[2022-10-07] MEDS: POLYETHYLENE GLYCOL (HEALTHYLAX) 3350 17 GM PACKET PO SCH ×2 (13:16→22:06)
[2022-10-07] MEDS: MONTELUKAST NA 10 MG TABLET PO SCH (22:06)
[2022-10-08] MEDS: CEFAZOLIN SODIUM 2 GM in DEXTROSE 5%-WATER 100 ML IVPB SCH ×3 (05:08→18:13)
[2022-10-08] MEDS: oxyCODONE HCL 5 MG TABLET PO PRN ×3 (05:09→15:21)
[2022-10-08] MEDS: LEVOTHYROXINE NA 125 MCG TABLET (FP) PO SCH (06:07)
[2022-10-08] MEDS: INSULIN SLIDING SCALE (NOVOLOG) 1 VIAL SQ SCH ×2 (06:08→17:45)
[2022-10-08] MEDS: ALBUTEROL SO4 2.5/IPRATROPIUM 0.5 INH SOL 3 ML VIAL.NEB. NEB SCH ×2 (07:50→11:40)
[2022-10-08] MEDS: PANTOPRAZOLE 40 MG TABLET PO SCH (10:39)
[2022-10-08] MEDS: valACYclovir HCL 500 MG TABLET (FP) PO SCH (10:39)
[2022-10-08] MEDS: ASPIRIN COATED 81 MG TABLET.EC PO SCH (10:40)
[2022-10-08] MEDS: POLYETHYLENE GLYCOL (HEALTHYLAX) 3350 17 GM PACKET PO SCH (10:40)
[2022-10-08] MEDS: CHOLECALCIFEROL (VIT D3) 5000 UNITS (125 MCG) CAP PO SCH (10:40)
[2022-10-08] MEDS ORDERED: HEPARIN NA (PORCINE) 5,000 UNITS/ML 1ML VIAL SQ SCH (14:00)
[2022-10-08 14:33] VITALS: BP 129/69; PULSE 77; TEMP 98.3
== END 2022-10-08 21:13 | disposition short-term general hospital (02) | DRG 871 ==
LOC: JER 13:02 → JERBED 15:56 → J7W 21:47
PROVIDERS: ADMIT Internal Medicine
DX: A40.9 Streptococcal sepsis, unspecified (principal); J18.9 Pneumonia, unspecified organism; J96.01 Acute respiratory failure with hypoxia; J96.02 Acute respiratory failure with hypercapnia; E87.20 Acidosis, unspecified; Z68.45 Body mass index [BMI] 70 or greater, adult; E03.9 Hypothyroidism, unspecified; S82.841A Displaced bimalleolar fracture of right lower leg, initial encounter for closed fracture; E11.9 Type 2 diabetes mellitus without complications; J45.909 Unspecified asthma, uncomplicated; E66.01 Morbid (severe) obesity due to excess calories; F32.9 Major depressive disorder, single episode, unspecified; W17.89XA Other fall from one level to another, initial encounter; Y93.89 Activity, other specified; Y92.89 Other specified places as the place of occurrence of the external cause; Y99.8 Other external cause status
CPT/HCPCS: 0241U-QW; 36415; 71045-TC-FY; 72100-TC-FY; 72170-TC-FY; 73502-TC-RT-FY; 73610-TC-RT-FY; 73630-TC-RT-FY; 80048; 80053; 81003; 82728; 82803; 82962; 83540; 83550; 83605; 83735; 83880; 84100; 84484; 85025; 85045; 85379; 85610; 85651; 85730; 86140; 86850; 86900; 86901; 87040; 87086; 87186; 93005; 93010; 93306-TC; 93970-TC; 94640; 97161-GP; 99285-25; C9803-CS; E0277; G0480; J1644; J1756; U0003; U0005

== ENCOUNTER 2023-04-09 15:56 | Inpatient (IN) | payer OTHER ==
[2023-04-09] MEDS ORDERED: ONDANSETRON 4 MG/2 ML VIAL IVPUSH ONE (16:55)
[2023-04-09] MEDS ORDERED: ACETAMINOPHEN 1000 MG/100 ML BAG IVPB ONE (16:55)
[2023-04-09 18:14] LABS: BASO % 0.6 % (0-2.0); EOS % 0.1 % (0-4.5); HEMATOCRIT 20.7 % (32.4-45.2); HEMOGLOBIN 7.1 GM/dL (10.7-15.3); LYMPH % 18.1 % (8-40); MCH 32.4 pg (25.7-33.7); MCHC 34.1 g/dl (32.0-36.0); MONO % 12.1 % (3.8-10.2); NEUT % 69.1 % (42.8-82.8); PLATELET COUNT 152 10^3/uL (134-434); RBC 2.18 M/mm3 (3.60-5.2); RDW 19.2 % (11.6-15.6); WHITE BLOOD COUNT 5.9 K/mm3 (4.0-10.0)
[2023-04-09] MEDS ORDERED: ACETAMINOPHEN INJECTION 100 ML IVPB ONE (18:14)
[2023-04-09] MEDS ORDERED: ONDANSETRON 4 MG/2 ML VIAL ONE (18:15)
[2023-04-09 18:19] LABS: INR 1.24 (0.83-1.09); PROTHROMBIN TIME (PATIENT) 14.4 SEC (9.7-13.0)
[2023-04-09 18:22] LABS: ACTIVATED PTT 24.6 SECONDS (25.2-36.5)
[2023-04-09 18:32] LABS: POTASSIUM 3.1 mmol/L (3.5-5.1)
[2023-04-09 18:34] LABS: ALBUMIN 2.3 g/dl (3.4-5.0); BLOOD UREA NITROGEN 12.3 mg/dL (7-18); CALCIUM 7.3 mg/dL (8.5-10.1)
[2023-04-09 18:35] LABS: MAGNESIUM 1.2 mg/dL (1.8-2.4)
[2023-04-09 18:37] LABS: CREATININE 1.2 mg/dL (0.55-1.3); PHOSPHOROUS 2.4 mg/dL (2.5-4.9)
[2023-04-09 18:39] LABS: BILIRUBIN,TOTAL 0.9 mg/dL (0.2-1); TOT PROT 5.6 g/dl (6.4-8.2)
[2023-04-09] MEDS ORDERED: POTASSIUM PHOSPHATE 30 MM in DEXTROSE 5%-WATER - 500 ML IVPB ONE (18:54)
[2023-04-09] MEDS ORDERED: MAGNESIUM SULF 50% (8.12 MEQ/2 ML-1 GM VIAL) IVPB ONE (18:55)
[2023-04-09] MEDS ORDERED: SODIUM CHLORIDE 0.9% 500 ML INFUS.BAG IV ONE (18:56)
[2023-04-09] MEDS ORDERED: MAGNESIUM SULFATE IN WATER 2 GM/50 ML IVPB IVPB ONE (19:31)
[2023-04-09] MEDS ORDERED: METOCLOPRAMIDE HCL INJECTION 10 MG/2 ML VIAL IVPUSH ONE (20:07)
[2023-04-09] MEDS ORDERED: METOCLOPRAMIDE HCL INJECTION 10 MG/2 ML VIAL ONE (20:08)
[2023-04-10] MEDS ORDERED: ONDANSETRON 4 MG/2 ML VIAL IVPUSH PRN
[2023-04-10] MEDS ORDERED: SODIUM CHLORIDE 1,000 ML IV SCH (00:15)
[2023-04-10] MEDS ORDERED: FAMOTIDINE 20 MG TABLET PO PRN (00:17)
[2023-04-10] MEDS ORDERED: PATIENT'S OWN MEDICATION (NON-FORMULARY) (Polyethylene Glycol 3350 119 GM Bottle) PO PRN (00:17)
[2023-04-10] MEDS ORDERED: SENNOSIDES 8.6MG TABLET (FP) PO PRN (00:17)
[2023-04-10] MEDS ORDERED: DOCUSATE SODIUM 100 MG CAPSULE (FP) PO PRN (00:17)
[2023-04-10] MEDS ORDERED: ACETAMINOPHEN 325 MG TABLET (FP) PO PRN (00:17)
[2023-04-10] MEDS ORDERED: SODIUM PHOSPHATE/NA BIPHOS 133 ML ENEMA RC PRN (00:17)
[2023-04-10] MEDS ORDERED: ONDANSETRON 8 MG PO PRN (00:17)
[2023-04-10] MEDS ORDERED: [UNRECOGNIZED DRUG - OTHER] IVPB SCH (00:30)
[2023-04-10] MEDS: METOCLOPRAMIDE HCL INJECTION 10 MG/2 ML VIAL IVPUSH SCH ×2 (02:16→09:46)
[2023-04-10] MEDS ORDERED: FERROUS SO4 325 MG TABLET (FP) PO SCH (06:00)
[2023-04-10] MEDS: LEVOTHYROXINE NA 125 MCG TABLET (FP) PO SCH (06:25)
[2023-04-10] MEDS ORDERED: metFORMIN HCL 500 MG TABLET (FP) PO SCH (07:00)
[2023-04-10] MEDS ORDERED: ACETAMINOPHEN 500 MG TABLET (FP) PO PRN (07:57)
[2023-04-10 08:22] LABS: IRON SERUM 85 ug/dL (50-175); POTASSIUM 3.4 mmol/L (3.5-5.1)
[2023-04-10 08:23] LABS: TOTAL IRON BINDING CAPACITY 88 ug/dL (250-450)
[2023-04-10 08:25] LABS: BLOOD UREA NITROGEN 10.7 mg/dL (7-18); MAGNESIUM 1.5 mg/dL (1.8-2.4)
[2023-04-10 08:26] LABS: BASO % 0.3 % (0-2.0); EOS % 0.2 % (0-4.5); HEMATOCRIT 18.9 % (32.4-45.2); LYMPH % 17.5 % (8-40); MCH 32.9 pg (25.7-33.7); MCHC 34.5 g/dl (32.0-36.0); MEAN CELL VOLUME 95.1 fl (80-96); MONO % 12.2 % (3.8-10.2); NEUT % 69.8 % (42.8-82.8); PLATELET COUNT 147 10^3/uL (134-434); RBC 1.99 M/mm3 (3.60-5.2); WHITE BLOOD COUNT 4.6 K/mm3 (4.0-10.0)
[2023-04-10 08:28] LABS: CREATININE 1.2 mg/dL (0.55-1.3); PHOSPHOROUS 3.8 mg/dL (2.5-4.9)
[2023-04-10 08:29] LABS: BILIRUBIN,TOTAL 0.5 mg/dL (0.2-1)
[2023-04-10 08:30] LABS: TOT PROT 4.9 g/dl (6.4-8.2)
[2023-04-10 08:39] LABS: HEMOGLOBIN 6.5 GM/dL (10.7-15.3)
[2023-04-10] MEDS ORDERED: POTASSIUM CHLORIDE ORAL LIQUID 20 MEQ/15 ML PO ONE (09:00)
[2023-04-10] MEDS ORDERED: MAGNESIUM SULFATE IN WATER 2 GM/50 ML IVPB IVPB ONE (09:00)
[2023-04-10] MEDS: PANTOPRAZOLE 40 MG TABLET PO SCH (09:24)
[2023-04-10] MEDS: amLODIPine BESYLATE 5 MG TABLET (FP) PO SCH (09:25)
[2023-04-10] MEDS: ALBUTEROL SO4 HFA INHALER IH SCH ×2 (09:25→22:10)
[2023-04-10] MEDS: FLUTICASONE PROP 0.05% 16 GM NASAL SPRAY NS SCH ×2 (09:26→09:42)
[2023-04-10] MEDS: CHOLECALCIFEROL (VIT D3) 5000 UNITS (125 MCG) CAP PO SCH (09:43)
[2023-04-10] MEDS ORDERED: ENOXAPARIN NA (PORCINE) 40 MG/0.4 ML DISP.SYRIN SQ SCH (10:00)
[2023-04-10] MEDS ORDERED: ASPIRIN COATED 81 MG TABLET.EC PO SCH (10:00)
[2023-04-10] MEDS: KCL 10 MEQ IVPB 10 MEQ/100 ML INFUS.BAG IVPB SCH ×2 (11:02→12:00)
[2023-04-10] MEDS: MONTELUKAST NA 10 MG TABLET PO SCH (21:57)
[2023-04-10] MEDS: ROSUVASTATIN CA 20 MG TABLET PO SCH (21:57)
[2023-04-11] MEDS ORDERED: EPOETIN ALFA 4000 UNIT/ML IJ SCH (00:17)
[2023-04-11] MEDS: LEVOTHYROXINE NA 125 MCG TABLET (FP) PO SCH (06:06)
[2023-04-11] MEDS: CHOLECALCIFEROL (VIT D3) 5000 UNITS (125 MCG) CAP PO SCH (09:55)
[2023-04-11] MEDS: PANTOPRAZOLE 40 MG TABLET PO SCH (09:55)
[2023-04-11] MEDS: FLUTICASONE PROP 0.05% 16 GM NASAL SPRAY NS SCH (09:57)
[2023-04-11] MEDS: POLYETHYLENE GLYCOL (HEALTHYLAX) 3350 17 GM PACKET PO SCH ×2 (09:57→21:11)
[2023-04-11] MEDS: ALBUTEROL SO4 HFA INHALER IH SCH ×2 (09:58→21:13)
[2023-04-11] MEDS: amLODIPine BESYLATE 5 MG TABLET (FP) PO SCH (10:00)
[2023-04-11] MEDS ORDERED: MIDAZOLAM HCL 2 MG/2 ML SINGLE DOSE VIAL ONE (11:12)
[2023-04-11 20:02] VITALS: BMI 47.7
[2023-04-11] MEDS: ROSUVASTATIN CA 20 MG TABLET PO SCH (21:11)
[2023-04-11] MEDS: MONTELUKAST NA 10 MG TABLET PO SCH (21:12)
[2023-04-11 21:13] LABS: HEMOGLOBIN 8.3 GM/dL (10.7-15.3); MCH 31.6 pg (25.7-33.7); MCHC 34.4 g/dl (32.0-36.0); MEAN CELL VOLUME 91.7 fl (80-96); PLATELET COUNT 173 10^3/uL (134-434); RBC 2.62 M/mm3 (3.60-5.2); RDW 18.8 % (11.6-15.6); WHITE BLOOD COUNT 3.3 K/mm3 (4.0-10.0)
[2023-04-11 21:19] LABS: MEAN PLT VOLUME 5.7 fl (7.5-11.1)
[2023-04-11] MEDS ORDERED: SODIUM CHLORIDE 0.9% 500 ML INFUS.BAG IV PRN (21:20)
[2023-04-11] MEDS: FAMOTIDINE 20 MG TABLET PO SCH (21:41)
[2023-04-11 21:56] LABS: CALCIUM 7.3 mg/dL (8.5-10.1)
[2023-04-11 21:57] LABS: BLOOD UREA NITROGEN 8.2 mg/dL (7-18); MAGNESIUM 1.8 mg/dL (1.8-2.4)
[2023-04-11 22:00] LABS: CREATININE 1.1 mg/dL (0.55-1.3)
[2023-04-11 22:32] LABS: EPI CELLS >36 /uL (0-25.1); HYALINE CASTS 1 /uL (0-3.1); PH,URINE 5.5 (5.0-8.0); URINE APPEARANCE CLOUDY; URINE BACTERIA 25 /uL (0-1359); URINE BILIRUBIN NEGATIVE (NEGATIVE); URINE COLOR YELLOW; URINE GLUCOSE (UA) NEGATIVE (NEGATIVE); URINE KETONE TRACE (NEGATIVE); URINE LEUK ESTERASE NEGATIVE (NEGATIVE); URINE NITRITE NEGATIVE (NEGATIVE); URINE PROTEIN 2+ (NEGATIVE); URINE RBC 24 /uL (0-23.9); URINE UROBILINOGEN 0.2 mg/dL (0.2-1.0); URINE WBC 40 /uL (0-25.8)
[2023-04-12] MEDS: LEVOTHYROXINE NA 125 MCG TABLET (FP) PO SCH (06:11)
[2023-04-12 07:40] LABS: HEMOGLOBIN 8.1 GM/dL (10.7-15.3); MCHC 35.1 g/dl (32.0-36.0); MEAN CELL VOLUME 91.1 fl (80-96); PLATELET COUNT 172 10^3/uL (134-434); RBC 2.52 M/mm3 (3.60-5.2); RDW 18.8 % (11.6-15.6); WHITE BLOOD COUNT 3.7 K/mm3 (4.0-10.0)
[2023-04-12 07:45] LABS: MEAN PLT VOLUME 5.8 fl (7.5-11.1)
[2023-04-12 08:09] LABS: POTASSIUM 3.6 mmol/L (3.5-5.1)
[2023-04-12 08:11] LABS: CALCIUM 7.2 mg/dL (8.5-10.1)
[2023-04-12 08:12] LABS: BLOOD UREA NITROGEN 8.2 mg/dL (7-18); MAGNESIUM 1.8 mg/dL (1.8-2.4)
[2023-04-12 08:16] LABS: CREATININE 1.1 mg/dL (0.55-1.3); PHOSPHOROUS 3.1 mg/dL (2.5-4.9)
[2023-04-12] MEDS: amLODIPine BESYLATE 5 MG TABLET (FP) PO SCH (09:00)
[2023-04-12] MEDS: PANTOPRAZOLE 40 MG TABLET PO SCH (09:00)
[2023-04-12] MEDS: CHOLECALCIFEROL (VIT D3) 5000 UNITS (125 MCG) CAP PO SCH (09:00)
[2023-04-12] MEDS: FLUTICASONE PROP 0.05% 16 GM NASAL SPRAY NS SCH (09:01)
[2023-04-12] MEDS: FAMOTIDINE 20 MG TABLET PO SCH ×2 (09:01→21:15)
[2023-04-12] MEDS: ALBUTEROL SO4 HFA INHALER IH SCH ×2 (09:05→21:15)
[2023-04-12] MEDS: POLYETHYLENE GLYCOL (HEALTHYLAX) 3350 17 GM PACKET PO SCH ×2 (09:08→21:14)
[2023-04-12] MEDS ORDERED: MAGNESIUM 2GM/50ML STERILE WATER IVPB IVPB ONE (09:16)
[2023-04-12] MEDS: metoPROLOL SUCCINATE 25 MG TAB.SR.24H (FP) PO SCH (09:34)
[2023-04-12] MEDS: FOLIC ACID 1 MG TABLET (FP) PO SCH (09:35)
[2023-04-12] MEDS ORDERED: PHYTONADIONE 10 MG/1 ML AMP IVPB ONE ×2 (12:41→15:00)
[2023-04-12] MEDS ORDERED: PEG 3350/NA SULF BICARB CL/KCL 4000 ML SOLN.RECON PO ONE (13:00)
[2023-04-12] MEDS ORDERED: BISACODYL 5 MG TABLET.DR (FP) PO ONE (20:00)
[2023-04-12] MEDS: ROSUVASTATIN CA 20 MG TABLET PO SCH (21:15)
[2023-04-12] MEDS: MONTELUKAST NA 10 MG TABLET PO SCH (21:15)
[2023-04-12] MEDS ORDERED: SODIUM CHLORIDE 0.9% 500 ML INFUS.BAG IV PRN (23:45)
[2023-04-12] MEDS ORDERED: ONDANSETRON 4 MG/2 ML VIAL IVPUSH PRN (23:45)
[2023-04-12] MEDS ORDERED: ACETAMINOPHEN 500 MG TABLET (FP) PO PRN (23:45)
[2023-04-13] MEDS: LEVOTHYROXINE NA 125 MCG TABLET (FP) PO SCH (07:23)
[2023-04-13] MEDS ORDERED: ALBUTEROL SO4 HFA INHALER IH SCH (10:00)
[2023-04-13 10:10] LABS: INR 1.17 (0.83-1.09); PROTHROMBIN TIME (PATIENT) 13.6 SEC (9.7-13.0)
[2023-04-13 10:19] LABS: BASO % 0.1 % (0-2.0); EOS % 0.3 % (0-4.5); HEMATOCRIT 22.6 % (32.4-45.2); HEMOGLOBIN 7.9 GM/dL (10.7-15.3); LYMPH % 18.8 % (8-40); MCH 32.3 pg (25.7-33.7); MCHC 34.8 g/dl (32.0-36.0); NEUT % 66.8 % (42.8-82.8); PLATELET COUNT 184 10^3/uL (134-434); RBC 2.43 M/mm3 (3.60-5.2); RDW 18.4 % (11.6-15.6); WHITE BLOOD COUNT 5.6 K/mm3 (4.0-10.0)
[2023-04-13 10:27] LABS: POTASSIUM 3.1 mmol/L (3.5-5.1)
[2023-04-13 10:30] LABS: CALCIUM 7.6 mg/dL (8.5-10.1)
[2023-04-13 10:31] LABS: ALBUMIN 2.2 g/dl (3.4-5.0); BLOOD UREA NITROGEN 8.1 mg/dL (7-18); MAGNESIUM 2.1 mg/dL (1.8-2.4)
[2023-04-13 10:34] LABS: CREATININE 1.1 mg/dL (0.55-1.3); PHOSPHOROUS 2.5 mg/dL (2.5-4.9)
[2023-04-13 10:35] LABS: TOT PROT 5.2 g/dl (6.4-8.2)
[2023-04-13 10:36] LABS: BILIRUBIN,TOTAL 0.8 mg/dL (0.2-1)
[2023-04-13 10:48] LABS: MEAN PLT VOLUME 5.5 fl (7.5-11.1)
[2023-04-13] MEDS ORDERED: METOCLOPRAMIDE HCL INJECTION 10 MG/2 ML VIAL ONE (10:50)
[2023-04-13] MEDS ORDERED: MIDAZOLAM HCL 2 MG/2 ML SINGLE DOSE VIAL ONE (10:51)
[2023-04-13] MEDS: FOLIC ACID 1 MG TABLET (FP) PO SCH (12:29)
[2023-04-13] MEDS: metoPROLOL SUCCINATE 25 MG TAB.SR.24H (FP) PO SCH (12:29)
[2023-04-13] MEDS: amLODIPine BESYLATE 5 MG TABLET (FP) PO SCH (12:30)
[2023-04-13] MEDS: FLUTICASONE PROP 0.05% 16 GM NASAL SPRAY NS SCH (12:31)
[2023-04-13] MEDS: POLYETHYLENE GLYCOL (HEALTHYLAX) 3350 17 GM PACKET PO SCH ×2 (12:31→22:33)
[2023-04-13] MEDS: PANTOPRAZOLE 40 MG TABLET PO SCH (12:31)
[2023-04-13] MEDS: FAMOTIDINE 20 MG TABLET PO SCH ×2 (12:31→22:33)
[2023-04-13] MEDS: CHOLECALCIFEROL (VIT D3) 5000 UNITS (125 MCG) CAP PO SCH (12:32)
[2023-04-13] MEDS: POTASSIUM CHLORIDE TABS 20 MEQ TABLET.ER (FP) PO SCH ×2 (15:12→22:33)
[2023-04-13 18:07] LABS: FREE KAPPA,SERUM 1002.8 mg/L (3.3-19.4)
[2023-04-13] MEDS ORDERED: MONTELUKAST NA 10 MG TABLET PO SCH (22:00)
[2023-04-13] MEDS ORDERED: HEPARIN NA (PORCINE) 5,000 UNITS/ML 1ML VIAL SQ SCH (22:00)
[2023-04-13] MEDS ORDERED: ROSUVASTATIN CA 20 MG TABLET PO SCH (22:00)
[2023-04-14 02:53] VITALS: RESP 18
[2023-04-14] MEDS: LEVOTHYROXINE NA 125 MCG TABLET (FP) PO SCH (06:38)
[2023-04-14 09:38] LABS: HEMATOCRIT 21.8 % (32.4-45.2); HEMOGLOBIN 7.5 GM/dL (10.7-15.3); LYMPH % 19.3 % (8-40); MCH 31.7 pg (25.7-33.7); MCHC 34.5 g/dl (32.0-36.0); MEAN CELL VOLUME 91.8 fl (80-96); MONO % 11.6 % (3.8-10.2); NEUT % 69.1 % (42.8-82.8); PLATELET COUNT 177 10^3/uL (134-434); RBC 2.37 M/mm3 (3.60-5.2); RDW 19.1 % (11.6-15.6); WHITE BLOOD COUNT 4.1 K/mm3 (4.0-10.0)
[2023-04-14 09:41] LABS: MEAN PLT VOLUME 5.6 fl (7.5-11.1)
[2023-04-14] MEDS ORDERED: CEFTRIAXONE 2 GM in DEXTROSE 5%-WATER 100 ML IVPB SCH (10:00)
[2023-04-14 10:04] LABS: POTASSIUM 3.5 mmol/L (3.5-5.1)
[2023-04-14 10:09] LABS: BLOOD UREA NITROGEN 8.1 mg/dL (7-18)
[2023-04-14 10:12] LABS: CALCIUM 7.9 mg/dL (8.5-10.1)
[2023-04-14 10:13] LABS: ALBUMIN 2.2 g/dl (3.4-5.0)
[2023-04-14 10:15] LABS: TOT PROT 5.2 g/dl (6.4-8.2)
[2023-04-14 10:16] LABS: BILIRUBIN,TOTAL 0.7 mg/dL (0.2-1); CREATININE 1.1 mg/dL (0.55-1.3)
[2023-04-14] MEDS: metoPROLOL SUCCINATE 25 MG TAB.SR.24H (FP) PO SCH (10:20)
[2023-04-14] MEDS: FOLIC ACID 1 MG TABLET (FP) PO SCH (10:23)
[2023-04-14] MEDS: CHOLECALCIFEROL (VIT D3) 5000 UNITS (125 MCG) CAP PO SCH (10:23)
[2023-04-14] MEDS: POLYETHYLENE GLYCOL (HEALTHYLAX) 3350 17 GM PACKET PO SCH ×2 (10:24→10:36)
[2023-04-14] MEDS: FAMOTIDINE 20 MG TABLET PO SCH (10:24)
[2023-04-14] MEDS: POTASSIUM CHLORIDE TABS 20 MEQ TABLET.ER (FP) PO SCH (10:24)
[2023-04-14] MEDS: FLUTICASONE PROP 0.05% 16 GM NASAL SPRAY NS SCH (10:25)
[2023-04-14] MEDS: amLODIPine BESYLATE 5 MG TABLET (FP) PO SCH (10:25)
[2023-04-14] MEDS: PANTOPRAZOLE 40 MG TABLET PO SCH (10:25)
[2023-04-14 14:28] VITALS: BP 96/63; PULSE 79; TEMP 99
[2023-04-15 16:07] LABS: GLIADIN ANTIBODY IGA 3 units (0-19); GLIADIN ANTIBODY IGG 2 units (0-19); TRANSGLUTAMINASE IGG < 2 U/mL (0-5)
== END 2023-04-14 15:54 | DRG 74 ==
LOC: JER 15:56 → INTOOBSV 22:30 → JERBED 22:30 → UNDOADMOB 22:30 → JERBED 23:34 → J4W 04-10 02:12 → OBSVTOIN 04-11 09:12 → J8W 04-12 22:04
PROVIDERS: ADMIT Internal Medicine; ATTEND Nurse Practitioner Acute Care
PROC: 0DB68ZX Excision of Stomach, Via Natural or Artificial Opening Endoscopic, Diagnostic (ICD-10-PCS; 2023-04-11)
PROC: 0DBK8ZX Excision of Ascending Colon, Via Natural or Artificial Opening Endoscopic, Diagnostic (ICD-10-PCS; 2023-04-11)
PROC: 0DB98ZX Excision of Duodenum, Via Natural or Artificial Opening Endoscopic, Diagnostic (ICD-10-PCS; principal; 2023-04-11 12:45)
DX: E11.43 Type 2 diabetes mellitus with diabetic autonomic (poly)neuropathy (principal); Z68.42 Body mass index [BMI] 45.0-49.9, adult; D52.9 Folate deficiency anemia, unspecified; K31.84 Gastroparesis; E87.6 Hypokalemia; E83.42 Hypomagnesemia; E83.39 Other disorders of phosphorus metabolism; E66.01 Morbid (severe) obesity due to excess calories; E83.51 Hypocalcemia; K80.20 Calculus of gallbladder without cholecystitis without obstruction; R11.2 Nausea with vomiting, unspecified; K57.30 Diverticulosis of large intestine without perforation or abscess without bleeding; K64.4 Residual hemorrhoidal skin tags; D12.2 Benign neoplasm of ascending colon; I10 Essential (primary) hypertension; E03.9 Hypothyroidism, unspecified; K64.8 Other hemorrhoids; M62.81 Muscle weakness (generalized); M54.59 Other low back pain; J44.9 Chronic obstructive pulmonary disease, unspecified; T38.3X5A Adverse effect of insulin and oral hypoglycemic [antidiabetic] drugs, initial encounter; F32.A Depression, unspecified; Z86.711 Personal history of pulmonary embolism
CPT/HCPCS: 0241U-QW; 36415; 36430; 71045-TC-FY; 74018-TC-FY; 74177-TC; 76705-TC; 80048; 80053; 81003; 82136; 82607; 82728; 82746; 82747; 82784; 82962; 83010; 83516; 83540; 83550; 83605; 83690; 83735; 83883; 83918; 84100; 84155; 84165; 84466; 84484; 85014; 85025; 85027; 85045; 85610; 85730; 86850; 86900; 86901; 86922; 87086; 87635; 88305-TC; 93005; 93010; 99285-25; G0378; P9058; Q9967